=== PATIENT | female | born 1985 | race African-American/Black ===

== ENCOUNTER 2018-11-17 19:36 | Emergency (ER) | payer MEDICAID ==
[~2018-11-17] VITALS: Ht 157.5 cm; Wt 86.7 kg
[2018-11-17 19:44] VITALS: BP 122/75
--- NOTE | 2018-11-17 19:52 | NUR ---
PT TAKEN TO BED 7
[2018-11-17 20:04] VITALS: BP 122/75
--- NOTE | 2018-11-17 20:04 | NUR ---
33 Y/O F PRESENTED TO ED WITH ABDOMINAL PAIN. 5/10 PAIN, CRAMPING. NO ABDOMINAL TENDERNESS. LMP 08/07/18. PER PT " I HAD A OB ULTRASOUND TODAY AND WAS TOLD IT WAS ABNROMAL BUT BECAUSE IT WAS A CLINIC TO CONFIRM THEY WOULDNT TELL ME WHAT WAS WRONG." ULTRASOUND COMPLETED TODAY. DENIES LOWER BACK PAIN OR VAGINAL BLEEDING. ERMD NOTIFIED. WILL CONTINUE TO MONITOR.
[2018-11-17 20:32] LABS: BASOPHILS % (AUTO) 0.2 % (0.0-2.0); EOSINOPHILS # (AUTO) 0.1 K/uL (0-0.4); EOSINOPHILS % (AUTO) 1.1 % (0.0-4.0); HEMATOCRIT 34.8 % (36-48); HEMOGLOBIN 11.3 g/dL (12.0-16.0); LYMPHOCYTES # (AUTO) 2.5 K/uL (2.5-16.5); LYMPHOCYTES % (AUTO) 47.2 % (20.5-51.1); MEAN CORPUSCULAR HEMOGLOBIN 30 pg (27-31); MEAN CORPUSCULAR HGB CONC 33 g/dL (33-37); MEAN CORPUSCULAR VOLUME 90.5 fL (80-94); MONOCYTES # (AUTO) 0.3 K/uL (0.8-1.0); MONOCYTES % (AUTO) 6.3 % (1.7-9.3); NEUTROPHILS # (AUTO) 2.4 K/uL (1.8-7.7); NEUTROPHILS % (AUTO) 45.2 % (42.2-75.2); PLATELET COUNT (AUTO) 208 K/uL (140-450); RED BLOOD CELL COUNT(AUTO) 3.85 MIL/uL (4.20-5.40); RED CELL DISTRIBUTION WIDTH 13.5 % (11.6-13.7); WHITE BLOOD COUNT (AUTO) 5.3 K/uL (4.8-10.8)
[2018-11-17 20:35] LABS: APPEARANCE,URINE CLEAR (CLEAR); BILIRUBIN,URINE NEGATIVE (NEGATIVE); BLOOD, URINE NEGATIVE (NEGATIVE); COLOR,URINE YELLOW (YELLOW); LEUKOCYTE ESTERASE ,URINE NEGATIVE (NEGATIVE); NITRITE, URINE NEGATIVE (NEGATIVE); UGLUCOSE NEGATIVE (NEGATIVE)
[2018-11-17 20:52] LABS: ALBUMIN 3.9 g/dL (3.4-5.0); ANION GAP 13.9 (8-16); CARBON DIOXIDE 24.9 mmol/L (21-32); CREATININE 0.8 mg/dL (0.6-1.3); POTASSIUM 3.8 mmol/L (3.5-5.1); TOTAL BILIRUBIN 0.2 mg/dL (0.0-1.0)
--- NOTE | 2018-11-17 21:05 | NUR ---
Ultrasound at bedside.
--- NOTE | 2018-11-17 21:30 | NUR ---
Dr. Salmon examining patient.
--- NOTE | 2018-11-17 21:43 | NUR ---
Patient discharged with v/s stable. Written and verbal after care instructions given and explained. Patient verbalized understanding. Ambulatory with steady gait. All questions addressed prior to discharge. Advised to follow up with PMD, repeat HCG level in 1-2days, and utlrasound 1-2 weeks.
== END 2018-11-17 21:43 | disposition home or self-care (01) ==
LOC: MED 19:36
DX: O20.0 Threatened abortion (principal); Z3A.01 Less than 8 weeks gestation of pregnancy
CPT/HCPCS: 36415; 76817; 80053; 81003; 81025; 84702; 85025; 86900; 86901; 99284; Q0092

== ENCOUNTER 2018-11-20 19:19 | Emergency (ER) | payer MEDICAID ==
[~2018-11-20] VITALS: Ht 157.5 cm; Wt 81.6 kg
[2018-11-20 19:30] VITALS: BP 118/70
--- NOTE | 2018-11-20 19:33 | NUR ---
TO LOBBY A/W BED AMBULATORY
[2018-11-20 20:12] LABS: BASOPHILS % (AUTO) 0.3 % (0.0-2.0); EOSINOPHILS % (AUTO) 0.8 % (0.0-4.0); HEMATOCRIT 35.1 % (36-48); HEMOGLOBIN 11.4 g/dL (12.0-16.0); LYMPHOCYTES # (AUTO) 2.6 K/uL (2.5-16.5); LYMPHOCYTES % (AUTO) 46.4 % (20.5-51.1); MEAN CORPUSCULAR HEMOGLOBIN 29 pg (27-31); MEAN CORPUSCULAR HGB CONC 32 g/dL (33-37); MEAN CORPUSCULAR VOLUME 89.9 fL (80-94); MONOCYTES # (AUTO) 0.4 K/uL (0.8-1.0); MONOCYTES % (AUTO) 6.8 % (1.7-9.3); NEUTROPHILS # (AUTO) 2.6 K/uL (1.8-7.7); NEUTROPHILS % (AUTO) 45.7 % (42.2-75.2); PLATELET COUNT (AUTO) 204 K/uL (140-450); RED BLOOD CELL COUNT(AUTO) 3.91 MIL/uL (4.20-5.40); RED CELL DISTRIBUTION WIDTH 13.7 % (11.6-13.7); WHITE BLOOD COUNT (AUTO) 5.6 K/uL (4.8-10.8)
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
[2018-11-20 21:17] VITALS: BP 118/70
--- NOTE | 2018-11-20 21:17 | NUR ---
Patient discharged with v/s stable. Written and verbal after care instructions given and explained. RECOMMENDED EATING BLAND FOOD, DRY TOAST AND UNSALTED CRACKERS WHEN FEELING NAUSEA. Patient alert, oriented and verbalized understanding of instructions. Ambulatory with steady gait. All questions addressed prior to discharge. ID band removed. Patient advised to follow up with PMD. Rx of ZOFRAN given. Patient educated on indication of medication including possible reaction and side effects. Opportunity to ask questions provided and answered.
== END 2018-11-20 21:17 | disposition home or self-care (01) ==
LOC: MED 19:19
DX: O26.891 Other specified pregnancy related conditions, first trimester (principal); R11.0 Nausea; R30.0 Dysuria; Z3A.01 Less than 8 weeks gestation of pregnancy
CPT/HCPCS: 36415; 81002; 81025; 84702; 85025; 99283